=== PATIENT | female | born 1955 | race Caucasian/White ===

== ENCOUNTER 2025-03-02 18:52 | Emergency (ER) | payer MEDICARE, SELFPAY ==
[2025-03-02 18:57] VITALS: BP 148/86
[2025-03-02 19:04] LABS: Glucose - Point of Care 145 mg/dl (70-99)
--- NOTE | 2025-03-02 20:36 | ED.GENMED ---
History of Present Illness
General
Chief Complaint: Blood Sugar Problem
Source: patient and family
Exam Limitations: none
Time Seen by Provider: 03/02/25 19:10
Nursing documentation reviewed up to this point in time: agreed with
History of Present Illness
History of Present Illness:
Note:
CHIEF COMPLAINT(S)
Accidental injection of veterinary insulin into the thumb.
HISTORY OF PRESENT ILLNESS
The patient is a 69-year-old female who presented to the emergency department following an accidental injection of approximately two to three units of veterinary porcine insulin into her thumb while administering the medication to her dog. The
patient reports no immediate symptoms but feels 'a little funny,' with sensations of 'buzzing' in her head and a mild headache. Prior to visiting the ER, the patient consumed honey, juice, and fruit punch to counteract potential hypoglycemic
effects. The patient does not report any chest pain or shortness of breath. Since the incident, she continues to take sugary beverages.
REVIEW OF SYSTEMS
- General: Feels 'a little funny,' mild headache.
- Cardiovascular: No chest pain.
- Respiratory: No shortness of breath.
- Neurological: Buzzing sensation in head.
PHYSICAL EXAM
Nursing notes reviewed and vital signs reviewed.
- General: Alert and oriented.
- Head: Mild headache.
- Cardiovascular: Heart rate regular, no murmurs or additional sounds.
- Respiratory: No distress noted.
- Neurological: Normal neurological status, except for buzzing sensation as reported.
PLAN
1. The patient was advised to consume a meal high in carbohydrates
2. The provider will discuss the case further with toxicology specialists for confirmation, the recommendations from the web content specialist were to consider admission concerning the long-acting nature of this medication as it has some effects potentially
up to even 24 hours though the maximum effect is 4 to 11 hours. This was discussed specifically with the patient and this concern admission was offered to the patient. She claimed that she would not like to stay and that she feels fine at this
point. Her sugar level here was in the 100s. It was explained to her that the dose she took is likely very low considering its 2 units at a lower concentration than the even human insulin but it is not possible to predict how she will respond to
it she understood this risk and still would like to go home. She was given very strict return precautions. Otherwise advised to consume ongoing carbohydrates at home.
DIFFERENTIAL DIAGNOSIS
The Differential Diagnosis includes, in no particular order and is not limited to:
1. Hypoglycemia
2. Insulin-related hypoglycemic episode
3. Anxiety due to medication error
4. Medication side effect
5. Stress response
6. Hypoglycemic unawareness
7. Paresthesia
8. Mild transient headache
9. Transient cephalgia due to stress
10. Adverse reaction to non-human insulin
Past History
Past History
ED Past Medical History: None
Social History
Living: with family
Employment: Employed
Review of Systems
Review of Systems
Allergies reviewed?: Yes
All Other Systems: ROS reviewed and negative except as documented in HPI and ROS
Phy Exam
Physical Exam
Physical Exam:
GENERAL: Alert , in no apparent distress
EYE: pupils equal and reactive
NECK: Supple, no significant adenopathy.
ENT: o/p clr, mmm.
CARDIAC: Regular rate and rhythm .
LUNGS: Clear breath sounds bilaterally, no acute respiratory distress, no wheezes/rales/rhonchi
ABDOMEN: Soft, without focal tenderness, no r/g, no cvat
NEUROLOGICAL: Alert and oriented, no focal neuro deficits
SKIN: Warm and dry, skin intact.
MUSCULOSKELETAL: No edema, well perfused.
PSYCH: Normal and appropriate interaction.
Course
Orders/Labs/Results
Orders:
Abnormal Lab Results
03/02/25
19:03
POC Glucose 145 H mg/dl
(70-99)
Vital Signs
Initial and Last Documented VS:
Initial Vital Signs
Temp Pulse Resp BP Pulse Ox
97.6 F 93 16 148/86 99
03/02/25 18:57 03/02/25 18:57 03/02/25 18:57 03/02/25 18:57 03/02/25 18:57
Last Documented Vital Signs
Temp Pulse Resp BP Pulse Ox
97.6 F 93 16 148/86 99
03/02/25 18:57 03/02/25 18:57 03/02/25 18:57 03/02/25 18:57 03/02/25 18:57
*Critical Care Note
Total Time (30-74mins, 75-104mins- exclusive of procedures): Not Applicable
ED Attending Note
-
Portions of this chart may have been created with voice recognition software.� Occasional wrong word or��sound alike� substitutions may have occurred due to the inherent limitations of voice recognition software.
Discharge Plan
Departure
Patient Disposition: Home (Routine Discharge)
Date of Disposition: 03/02/25
Time of Disposition: 20:36
Patient with high blood pressure during this ER visit?: No
Condition: Good
Covid-19: Not Applicable
Discharge Problem:
Unintentional poisoning by insulin
Instructions: Using insulin
Prescriptions:
No Action
prednisone 10 MG tablet
10 mg PO .TAPER Qty: 30 0RF
Rx Instructions:
Take 50mg daily x2days, 40mg daily x2days, 30mg daily x2days, 20mg daily x2days, 10mg daily x2days
diazepam 5 MG tablet
5 mg PO TIDPRN PRN (Reason: spasm/pain) Qty: 20 0RF
Referrals:
Rosibel Salazar MD [Family Provider, Family Practice]
Activity Restrictions/Additional Instructions:
You came to the emergency department today after accidental insulin exposure. Please keep a very close eye on your symptoms at home and eat plenty of carbohydrates. Immediately return for any worsening symptoms.
Interventions
Interventions:
*Risk Screen - Suicide Last Done: 03/02/25 18:57
*General Assessment Last Done: 03/02/25 18:57
*Neglect/Abuse Screening Last Done: 03/02/25 18:57
*ED- Fall Risk Assessment Last Done: 03/02/25 19:18
*ED COVID-19 Vaccine History Last Done: 03/02/25 19:18
ED- Neurological Assessment Last Done: 03/02/25 19:34
Discharge Date and Time
Print Language: ARABIC
== END 2025-03-02 21:01 | disposition home or self-care (01) ==
LOC: EMR 18:52
PROVIDERS: EMERGENCY PHYSICIAN Student in an Organized Health Care Education/Training Program; FAMILY PHYSICIAN Family Medicine
DX: T38.3X1A Poisoning by insulin and oral hypoglycemic [antidiabetic] drugs, accidental (unintentional), initial encounter (principal); R51.9 Headache, unspecified
CPT/HCPCS: 99283; 82962